=== PATIENT | male | born 2000 | race Caucasian/White ===

== ENCOUNTER 2022-12-02 08:48 | Emergency (ER) | payer SELFPAY ==
[~2022-12-02] VITALS: Ht 185.4 cm; Wt 81.7 kg
[~2022-12-02 08:48] MED LIST: AMOCLA875 PO; CEPH250SUA PO; CEPH500 PO; CODACE30 PO; CODACEE120 PO; FLORIDE; METPHE10; RXCEPH250S PO; RXCODACESY PO; RXCODACET PO; SULTRIDS PO; SULTRIEL PO; VIT C
[2022-12-02] MEDS ORDERED: CEPH500 PO (09:49)
== END 2022-12-02 10:00 | disposition home or self-care (01) ==
LOC: ER 08:48
DX: L03.115 Cellulitis of right lower limb (principal)
CPT/HCPCS: 99283

== ENCOUNTER 2023-06-16 15:15 | Emergency (ER) | payer SELFPAY ==
[~2023-06-16] VITALS: Ht 185.4 cm; Wt 79.4 kg
[2023-06-16 15:18] VITALS: BP 133/73
[2023-06-16] MEDS ORDERED: AMOCLA875 PO (15:57)
== END 2023-06-16 16:08 | disposition home or self-care (01) ==
LOC: ER 15:15
DX: K08.89 Other specified disorders of teeth and supporting structures (principal)
CPT/HCPCS: 99282; A9270

== ENCOUNTER 2023-08-04 16:48 | Emergency (ER) | payer SELFPAY ==
[~2023-08-04] VITALS: Ht 180.3 cm; Wt 65.8 kg
[2023-08-04 17:06] VITALS: BP 155/101
[2023-08-04] MEDS ORDERED: Cleocin HCl150 MG PO (17:11)
== END 2023-08-04 17:15 | disposition home or self-care (01) ==
LOC: ER 16:48
DX: K04.7 Periapical abscess without sinus (principal)
CPT/HCPCS: 99282; A9270

== ENCOUNTER 2023-09-12 06:04 | Emergency (ER) | payer SELFPAY ==
[~2023-09-12] VITALS: Ht 185.4 cm; Wt 81.7 kg
[~2023-09-12 06:04] MED LIST changes: +Cleocin HCl150 MG PO
[2023-09-12] MEDS ORDERED: SULTRIDS PO (08:26)
[2023-09-12 08:30] VITALS: BP 124/84
== END 2023-09-12 08:31 | disposition home or self-care (01) ==
LOC: ER 06:04
DX: L73.9 Follicular disorder, unspecified (principal); Z79.899 Other long term (current) drug therapy
CPT/HCPCS: 99283; A9270

== ENCOUNTER → 2023-12-07 | Emergency (ER) | payer SELFPAY ==
[~2023-12-07] VITALS: Ht 185.4 cm; Wt 85.7 kg
[~2023-12-07] MED LIST changes: +Amoxicillin500 MG PO
[2023-12-07 13:05] VITALS: BP 143/82
== END ==
LOC: ER 12:35
DX: K04.7 Periapical abscess without sinus (principal); F17.200 Nicotine dependence, unspecified, uncomplicated
CPT/HCPCS: 99281

== ENCOUNTER 2023-12-27 10:18 | Emergency (ER) | payer SELFPAY ==
[~2023-12-27] VITALS: Ht 185.4 cm; Wt 86.2 kg
[2023-12-27 10:22] VITALS: BP 132/72
[2023-12-27] MEDS ORDERED: Cleocin HCl150 MG PO (10:23)
[2023-12-28] MEDS ORDERED: KETO10 PO
== END 2023-12-27 10:27 | disposition home or self-care (01) ==
LOC: ER 10:18
DX: Z76.0 Encounter for issue of repeat prescription (principal); K04.7 Periapical abscess without sinus; Z79.899 Other long term (current) drug therapy
CPT/HCPCS: 99282

== ENCOUNTER 2024-04-13 07:06 | Emergency (ER) | payer OTHER ==
[~2024-04-13] VITALS: Ht 185.4 cm; Wt 83.9 kg
[~2024-04-13 07:06] MED LIST changes: +KETO10 PO
[2024-04-13 07:18] VITALS: BP 127/73
[2024-04-13] MEDS ORDERED: BUPRENORPHINE HC2 MG SL (07:20)
[2024-04-13] MEDS ORDERED: Trimethoprim/Sulfamethoxazole DS Tab PO ONE (07:55)
[2024-04-13] MEDS ORDERED: Ketorolac Tromethamine 30mg Vial IM ONE (08:30)
[2024-04-13] MEDS ORDERED: Acetaminophen 325 MG TABLET PO ONE (08:30)
[2024-04-13] MEDS ORDERED: SULTRIDS PO (08:34)
== END 2024-04-13 08:42 | disposition home or self-care (01) ==
LOC: ER 07:06
DX: L02.414 Cutaneous abscess of left upper limb (principal); L03.114 Cellulitis of left upper limb; F15.90 Other stimulant use, unspecified, uncomplicated; F17.200 Nicotine dependence, unspecified, uncomplicated; Z79.899 Other long term (current) drug therapy
CPT/HCPCS: 10060; 96372-59; 99283-25; A9270; J1885

== ENCOUNTER 2024-12-22 12:09 | Emergency (ER) | payer OTHER ==
[~2024-12-22] VITALS: Ht 185.4 cm; Wt 77.1 kg
[~2024-12-22 12:09] MED LIST changes: +BUPRENORPHINE HC2 MG SL; +Bactrim Ds Tab1 EACH PO
[2024-12-22 12:27] VITALS: BP 130/71
[2024-12-22] MEDS ORDERED: Clindamycin HC150 MG PO (12:33)
== END 2024-12-22 12:32 | disposition home or self-care (01) ==
LOC: ER 12:09
DX: K04.7 Periapical abscess without sinus (principal); F17.200 Nicotine dependence, unspecified, uncomplicated; Z79.899 Other long term (current) drug therapy
CPT/HCPCS: 99282

== ENCOUNTER 2024-12-24 14:18 | Emergency (ER) | payer OTHER ==
[~2024-12-24] VITALS: Ht 185.4 cm; Wt 79.4 kg
[~2024-12-24 14:18] MED LIST changes: +Clindamycin HC150 MG PO
[2024-12-24 14:36] VITALS: BP 128/75
[2024-12-24] MEDS ORDERED: Bactrim Ds Tab1 EACH PO (14:44)
[2024-12-24] MEDS ORDERED: CEPH500 PO (14:44)
[2024-12-24] MEDS ORDERED: Ketorolac Tromethamine 30mg Vial IM ONE (15:25)
== END 2024-12-24 15:26 | disposition home or self-care (01) ==
LOC: ER 14:18
DX: L02.414 Cutaneous abscess of left upper limb (principal); F17.200 Nicotine dependence, unspecified, uncomplicated; Z59.89 Other problems related to housing and economic circumstances
CPT/HCPCS: 10060; 96372; 99283-25; J1885

== ENCOUNTER 2025-05-12 19:42 | Emergency (ER) | payer OTHER ==
[~2025-05-12] VITALS: Ht 188 cm; Wt 81.7 kg
[2025-05-12 19:51] VITALS: BP 130/79
[2025-05-12] MEDS ORDERED: Ketorolac Tromethamine 30mg Vial IM ONE (20:00)
[2025-05-12] MEDS ORDERED: Trimethoprim/Sulfamethoxazole DS Tab PO ONE (21:20)
[2025-05-12] MEDS ORDERED: SULTRIDS PO (21:21)
== END 2025-05-12 21:35 | disposition home or self-care (01) ==
LOC: ER 19:42
DX: L02.413 Cutaneous abscess of right upper limb (principal); F41.9 Anxiety disorder, unspecified; F17.200 Nicotine dependence, unspecified, uncomplicated; Z79.899 Other long term (current) drug therapy
CPT/HCPCS: 10061; 87070; 87075; 87076; 87185; 87205; 96374-59; 99282-25; A9270; J1885

== ENCOUNTER 2025-07-28 05:06 | Emergency (ER) | payer OTHER ==
[~2025-07-28] VITALS: Ht 182.9 cm; Wt 81.7 kg
[2025-07-28 05:39] LABS: BASOPHILS ABSOLUTE AUTO 0.04 K/mm3 (0.00-0.23); BASOPHILS PERCENT AUTO 1 % (0-2); EOSINOPHILS ABSOLUTE AUTO 0.24 K/mm3 (0.00-0.68); EOSINOPHILS PERCENT AUTO 4 % (0-6); Hematocrit 40.4 % (37.0-53.0); Hemoglobin 14.0 g/dL (13.5-17.5); IMMATURE GRAN ABSOLUTE AUTO 0.02 K/mm3 (0.00-0.10); IMMATURE GRAN PERCENT AUTO 0 % (0-1); LYMPHOCYTES ABSOLUTE AUTO 1.61 K/mm3 (0.84-5.20); LYMPHOCYTES PERCENT AUTO 24 % (21-46); MONOCYTES ABSOLUTE AUTO 0.90 K/mm3 (0.16-1.47); MONOCYTES PERCENT AUTO 14 % (4-13); Mean Corpuscular HGB Conc 34.7 g/dL (31.5-36.5); Mean Corpuscular Volume 80 fL (80-100); NEUTROPHILS ABSOLUTE AUTO 3.88 K/mm3 (1.96-9.15); NEUTROPHILS PERCENT AUTO 58 % (41-73); NRBC ABSOLUTE 0.00 K/mm3 (0.00-0.02); NRBC Auto 0.0 /100 WBC (0.0-0.2); Platelet Count 208 K/mm3 (150-400); RDW Coefficient Variation 14.0 % (11.7-14.2); RDW Standard Deviation 40.3 fL (35.1-46.3)
[2025-07-28 06:04] LABS: Alanine Aminotransfer (ALT/SGP 73.0 U/L (12-78); Albumin, Blood 4.0 g/dL (3.4-5.0); Albumin/Globulin Ratio 1.1 (0.8-1.8); Anion Gap 9.0 mmol/L (3-11); Aspartate Aminotrans (AST/SGOT 109.0 U/L (12-37); Bilirubin, Total 2.3 mg/dL (0.1-1.0); Blood Urea Nitrogen 16.0 mg/dL (8-24); CO2, Blood 28.0 mmol/L (21-32); Calcium, Blood 9.3 mg/dL (8.5-10.1); Chloride, Blood 102.0 mmol/L (98-108); Creatinine, Blood 0.91 mg/dL (0.60-1.20); Globulin, Blood 3.8 g/dL (2.2-4.0); Glucose, Blood 95.0 mg/dL (70-99); Potassium, Blood 3.0 mmol/L (3.5-5.5); Sodium, Blood 136.0 mmol/L (136-145); Total Protein, Blood 7.8 g/dL (6.4-8.2)
[2025-07-28 06:21] LABS: Influenza A, PCR NEGATIVE (NEGATIVE); Influenza B, PCR NEGATIVE (NEGATIVE); Resp Syncytial Virus, PCR NEGATIVE (NEGATIVE); SARS-Cov-2 (COVID-19) PCR, MMC NEGATIVE (NEGATIVE)
[2025-07-28 06:30] VITALS: BP 124/85
== END 2025-07-28 06:44 | disposition home or self-care (01) ==
LOC: ER 05:06
PROVIDERS: Emergency Medicine
DX: J20.8 Acute bronchitis due to other specified organisms (principal); F17.200 Nicotine dependence, unspecified, uncomplicated
CPT/HCPCS: 71045; 80053; 85025; 87637; 99283-25; A9270